=== PATIENT | male | born 1945 | race Caucasian/White ===

== ENCOUNTER 2017-09-28 10:52 | Observation (INO) | payer OTHER ==
[~2017-09-28] VITALS: Ht 167.6 cm; Wt 84.3 kg
[2017-09-28] MEDS ORDERED: RANITIDINE HCL 50 MG/100 ML D5W IV STA (11:23)
[2017-09-28] MEDS ORDERED: DiphenhydrAMINE HCL 50 MG/ML VIAL IV STA (11:23)
[2017-09-28] MEDS ORDERED: METHYLPREDNISOLONE 125 MG VIAL IV STA (11:23)
--- NOTE | 2017-09-28 11:46 | EMERGENCY ROOM VISIT NOTE ---
History Report prepared by Oscar: Joni Emmanuel Under the Supervision of: Dr. Chacho Stanley M.D. First contact with patient: 11:01 Chief Complaint: ALLERGIC REACTION Stated Complaint: ALLERGIC REACTION,HIVES,SWELLING,FATIGUE History of Present Illness The patient is a 72 year old male who presents to the Emergency Room due to complaints of a waxing and waning allergic reaction that began 8 days ago. Patient states that he also has itchiness. He states that the hives are located "all over his body". Patient states that the first episode occurred 8 days ago when he was taking a flight from [place] to [facility]. He states that during the flight he was itching only in his genital region. Patient states that he woke up the next morning with facial swelling and even more itching. He states that he went to a 24 hour clinic down in the [facility] and was discharged on Benadryl and 2 Prednisone tablets. He states that he was fine the next two days but then the hives came back again 4 days ago. He states that he then went back again to the clinic and was prescribed more Prednisone. He states that he cut his trip short from the [facility] and flew back to [place] the next day. He states that the hives were the "worst" they have ever been yesterday. He states that the hives are only itchy "when they are developing" and not when they are established. Patient states that he was seen at [facility] recently for his symptoms. Patient states that he takes a baby aspirin daily. He denies a history of problems with the baby aspirin. Patient states that he has no other medical problems. He denies sore throat, fevers, and abdominal pain. 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 Patient is present with his . Source of History: patient, spouse/significant other () Onset: 8 days ago Position: head, chest, shoulder, arm (bilateral), back, leg (bilateral) Quality: other ("itchy") Timing: waxes/wanes Modifying Factors (Relieving): other (None) Associated Symptoms: No fevers, No abdominal pain Note: Patient denies sore throat. Review of Systems See HPI for pertinent positives & negatives. A total of 10 systems reviewed and were otherwise negative. Past Medical & Surgical Old medical records were reviewed. Nurse's notes were reviewed and I agree with. No pertinent past medical & surgical history. Family History FHx: Alzheimer's disease Polyarthritis Social History Smoking Status: Never Smoker Marital Status: Housing Status: lives with family Occupation Status: retired Current/Historical Medications Scheduled Aspirin (Aspirin Ec), 81 MG PO DAILY Diphenhydramine Hcl (Benadryl), 50 MG PO Q6 Famotidine (Pepcid), 20 MG PO DAILY Prednisone (Prednisone), 0 PO UD Prednisone (Prednisone), 50 MG PO DAILY Scheduled PRN Epinephrine (Epipen), 0.3 MG IM UD PRN for Allergic Reaction Allergies Coded Allergies: Codeine (Unverified Allergy, Unknown, 09/28/17) Physical Exam Vital Signs Date Time Temp Pulse Resp B/P (MAP) Pulse Ox O2 Delivery O2 Flow Rate FiO2 09/28/17 14:30 76 20 109/72 92 Room Air 09/28/17 12:53 94 20 119/80 94 Room Air 09/28/17 11:09 99 Room Air 09/28/17 10:57 36.7 115 16 122/90 99 Room Air Physical Exam General: Non-ill appearing older male with a diffuse red rash consistent with hives in no acute distress and no respiratory symptoms. HEENT: Normal cephalic atraumatic. Right eye sclera is injected from where the patient is rubbing otherwise pupils are equal round and reactive to light. Extraocular movements are intact. Oropharynx is pink with moist mucous membranes. No lesions or posterior swelling. No swelling of the mouth lips or tongue. Neck: Supple with a midline trachea. No meningeal signs or stiffness, no JVD or bruits. No Stridor. Chest: Clear to auscultation bilaterally. No wheezes or rhonchi. No increased work of breathing. Heart: regular rate and rhythm. Abdomen: Soft nontender, nondistended without rebound guarding or rigidity. Extremities: No cyanosis clubbing or edema. No calf tenderness or assymetry Spine/Back. Non tender to palpation. No CVA tenderness Skin: Diffuse red rash consistent with hives. Significant body coverage on legs , arms, and torso. No involvement of the mucous membranes or palms/soles. Good turgor. Neurologic exam: Cranial nerves two through 12 are intact. Motor and sensation are intact and symmetrical throughout. Medical Decision & Procedures ER Provider Diagnostic Interpretation: Radiology results as stated below per my review and radiologist interpretation: CHEST ONE VIEW PORTABLE CLINICAL HISTORY: Atypical chest pain COMPARISON STUDY: No previous studies for comparison. FINDINGS: The cardiac and mediastinal contours are normal. There is no evidence of focal pulmonary consolidation. There is no evidence of failure. No pleural effusions are visualized.[ IMPRESSION: No active disease in the chest. Electronically signed by: Perez Araya M.D. 09/28/2017 2:13 PM Chest x-ray per my interpretation reveals no pneumothorax, failure, or infiltrate. Laboratory Results 09/28/17 11:30 Red Blood Count 6.16, Mean Corpuscular Volume 90.7, Mean Corpuscular Hemoglobin 33.8, Mean Corpuscular Hemoglobin Concent 37.2, Mean Platelet Volume 11.7, Neutrophils (%) (Auto) 86.9, Lymphocytes (%) (Auto) 9.1, Monocytes (%) (Auto) 3.6, Eosinophils (%) (Auto) 0.1, Basophils (%) (Auto) 0.0, Neutrophils # (Auto) 5.98, Lymphocytes # (Auto) 0.63, Monocytes # (Auto) 0.25, Eosinophils # (Auto) 0.01, Basophils # (Auto) 0.00 09/28/17 11:30 Test 09/28/17 11:30 09/28/17 14:30 White Blood Count 6.89 K/uL (4.8-10.8) Red Blood Count 6.16 M/uL (4.7-6.1) Hemoglobin 20.8 g/dL (14.0-18.0) Hematocrit 55.9 % (42-52) Mean Corpuscular Volume 90.7 fL (80-100) Mean Corpuscular Hemoglobin 33.8 pg (25-34) Mean Corpuscular Hemoglobin Concent 37.2 g/dl (32-36) Platelet Count 146 K/uL (130-400) Mean Platelet Volume 11.7 fL (7.4-10.4) Neutrophils (%) (Auto) 86.9 % Lymphocytes (%) (Auto) 9.1 % Monocytes (%) (Auto) 3.6 % Eosinophils (%) (Auto) 0.1 % Basophils (%) (Auto) 0.0 % Neutrophils # (Auto) 5.98 K/uL (1.4-6.5) Lymphocytes # (Auto) 0.63 K/uL (1.2-3.4) Monocytes # (Auto) 0.25 K/uL (0.11-0.59) Eosinophils # (Auto) 0.01 K/uL (0-0.5) Basophils # (Auto) 0.00 K/uL (0-0.2) RDW Standard Deviation 42.1 fL (36.4-46.3) RDW Coefficient of Variation 12.7 % (11.5-14.5) Immature Granulocyte % (Auto) 0.3 % Immature Granulocyte # (Auto) 0.02 K/uL (0.00-0.02) Anion Gap 8.0 mmol/L (3-11) Est Creatinine Clear Calc Drug Dose 60.4 ml/min Estimated GFR () 72.8 Estimated GFR (Non- 62.8 BUN/Creatinine Ratio 16.5 (10-20) Calcium Level 9.3 mg/dl (8.5-10.1) Total Bilirubin 2.8 mg/dl (0.2-1) Direct Bilirubin 0.3 mg/dl (0-0.2) Aspartate Amino Transf (AST/SGOT) 17 U/L (15-37) Alanine Aminotransferase (ALT/SGPT) 18 U/L (12-78) Alkaline Phosphatase 120 U/L (45-117) Total Protein 7.0 gm/dl (6.4-8.2) Albumin 3.8 gm/dl (3.4-5.0) Lipase 216 U/L (73-393) Thyroid Stimulating Hormone (TSH) 1.460 uIu/ml (0.300-4.500) Urine Color YELLOW Urine Appearance CLEAR (CLEAR) Urine pH 5.5 (4.5-7.5) Urine Specific [place] 1.018 (1.000-1.030) Urine Protein NEG (NEG) Urine Glucose (UA) NEG (NEG) Urine Ketones NEG (NEG) Urine Occult Blood NEG (NEG) Urine Nitrite NEG (NEG) Urine Bilirubin NEG (NEG) Urine Urobilinogen NEG (NEG) Urine Leukocyte Esterase NEG (NEG) Laboratory studies as stated above per my review. Medications Administered Medications (Trade) Dose Ordered Sig/Celeste Route Start Time Stop Time Status Last Admin Dose Admin Methylprednisolone Sodium Succinate (Solu-Medrol IV) 125 mg NOW STAT IV 09/28/17 11:23 09/28/17 11:24 DC 09/28/17 11:41 125 MG Diphenhydramine HCl (Benadryl Inj) 25 mg NOW STAT IV 09/28/17 11:23 09/28/17 11:24 DC 09/28/17 11:41 25 MG Ranitidine HCl (zANTac IV) 50 mg NOW STAT IV 09/28/17 11:23 09/28/17 11:24 DC 09/28/17 11:42 50 MG ED Course 1106: Past medical records reviewed. The patient was evaluated in room C12B, and a complete history and physical examination were performed. 1123: Ranitidine HCl 50mg IV, Benadryl Inj 25mg IV, and Solu-Medrol IV 125mg IV. 1343: Patient's hives are starting to fade. Facial swelling has resolved since coming to the ER. 1443: I reassessed the patient. Patient's hives are starting to get better, however they have reappeared on his face and hands. believes that the patient has gotten worse. 1453: Upon reevaluation, the patient will be further evaluated. I discussed the results and treatment plan with the patient. He verbalized agreement of the treatment plan. The patient will be evaluated for further management. Medical Decision Differentials include, but are not limited to; hives, allergic reaction, electrolyte or metabolic abnormality, and Price-Lang syndrome. This patient comes in as described above. He was placed in room C 12. Here for treatment and evaluation of ongoing hives/urticaria rash. This started about 8 days ago. He is on a tapering dose of steroids and this has gotten worse over the last 24 hours. he has had no airway compromise or swelling of the mouth lips or tongue. he does have some mild swelling the face. IV access was established was given Solu-Medrol 125 mg IV, Benadryl 25 mg IV, Zantac 50 mg IV. With these measures he actually looks significantly better he still has a lot of residual rash but is fading the face is no longer swollen. He is no evidence to suggest anaphylaxis. I did blood work on him and looked at his labs from [facility]. He has no white count or fever to suggest infection. His hemoglobin is high at 20 and he may have polycythemia. I am not sure offhanded if this could cause her to cardiac. His bilirubin is also mildly high at 2.6 or the rest of LFTs are unremarkable besides this rest of his labs are unremarkable. I do not find a definite reason for his urticaria at this point, I doubt is allergic because this has been going on for so long. I did discuss case with a customer expert recommends ensuring that he is on higher dose steroids. I was considering sending him home and his feels the rash is getting worse. In light of this, I do think he should be observed and have consulted the [facility] hospitalist. He has no evidence of any airway compromise or infection at this point. He will likely need several specialties involved to rule out other potential underlying etiologies. Patient and his were happy with the plan. Medication Reconcilliation Current Medication List: was personally reviewed by me Blood Pressure Screening Patient's blood pressure: Normal blood pressure Blood pressure disposition: Did not require urgent referral Consults Time Called: 1345 Consulting Physician: Dr. Gregory - Dermatology Returned Call: [phone] Discussed the patient's case. Dr. Gregory recommends giving the patient a chest x-ray and urine test. She recommends the patient follow-up with hematology and dermatology following discharge. She adds that the patient should be on a high dose of steroids and be prescribed an EpiPen. Additional Consults: Time Called: 1447 Consulted Physician: Melissa Lau PA-C - [facility] Returned Call: [phone] Additional Comments: Discussed the patient's case. The patient will be evaluated for further management. Impression Primary Impression: Urticarial rash Scribe Attestation The scribe's documentation has been prepared under my direction and personally reviewed by me in its entirety. I confirm that the note above accurately reflects all work, treatment, procedures, and medical decision making performed by me. Departure Information Dispostion Being Evaluated By Hospitalist Prescriptions Epinephrine (EPIPEN) 0.3 Mg/0.3 Ml Inj 0.3 MG IM UD Y for Allergic Reaction, #1 BOX Prov: Chacho Stanley M.D. 09/28/17 Prednisone (Prednisone) 50 Mg Tab 50 MG PO DAILY, #5 TAB Prov: Chacho Stanley M.D. 09/28/17 Referrals Vivian Gu M.D. (PCP) Forms HOME CARE DOCUMENTATION FORM, IMPORTANT VISIT INFORMATION Patient Instructions [facility]
[2017-09-28 11:55] LABS: EOS % 0.1 %; EOS ABS # 0.01 K/uL (0-0.5); HEMATOCRIT 55.9 % (42-52); HEMOGLOBIN 20.8 g/dL (14.0-18.0); IG# 0.02 K/uL (0.00-0.02); LYMPH % 9.1 %; LYMPH ABS # 0.63 K/uL (1.2-3.4); MEAN CELL VOLUME 90.7 fL (80-100); MEAN CORPUSCULAR HEMOGLOBIN 33.8 pg (25-34); MEAN PLATELET VOLUME 11.7 fL (7.4-10.4); MONO % 3.6 %; MONO ABS # 0.25 K/uL (0.11-0.59); NEUT % 86.9 %; NEUT ABS # 5.98 K/uL (1.4-6.5); PLATELET COUNT 146 K/uL (130-400); RED CELL DISTRIBUTION WIDTH CV 12.7 % (11.5-14.5); RED CELL DISTRIBUTION WIDTH SD 42.1 fL (36.4-46.3); WHITE BLOOD COUNT 6.89 K/uL (4.8-10.8)
[2017-09-28 12:12] LABS: MEAN CORPUSCULAR HGB CONC 37.2 g/dl (32-36)
[2017-09-28] MEDS ORDERED: FAMO20TA11 PO (12:16)
[2017-09-28] MEDS ORDERED: ASPI81TA28 PO (12:16)
[2017-09-28] MEDS ORDERED: PRED10TA PO (12:16)
[2017-09-28] MEDS ORDERED: DIPH25CA5 PO (12:16)
[2017-09-28 12:22] LABS: ALBUMIN 3.8 gm/dl (3.4-5.0); CALCIUM 9.3 mg/dl (8.5-10.1); CREATININE 1.17 mg/dl (0.60-1.40); POTASSIUM 4.1 mmol/L (3.5-5.1)
[2017-09-28] MEDS ORDERED: EPP3/2 IM (14:06)
[2017-09-28] MEDS ORDERED: PRED50TA PO (14:06)
--- NOTE | 2017-09-28 14:14 | DIAGNOSTIC IMAGING REPORT ---
CHEST ONE VIEW PORTABLE CLINICAL HISTORY: Atypical chest pain COMPARISON STUDY: No previous studies for comparison. FINDINGS: The cardiac and mediastinal contours are normal. There is no evidence of focal pulmonary consolidation. There is no evidence of failure. No pleural effusions are visualized.[ IMPRESSION: No active disease in the chest. Electronically signed by: Perez Araya M.D. 09/28/2017 2:13 PM Dictated Date/Time: 09/28/2017 2:13 PM
[2017-09-28] MEDS ORDERED: ACETAMINOPHEN 325 MG TAB PO PRN (15:30)
[2017-09-28] MEDS ORDERED: SODIUM CHLORIDE 0.9% 1000ML 1,000 ML IV SCH (15:45)
[2017-09-28] MEDS ORDERED: CETIRIZINE HCL 10 MG TAB PO ONE (15:45)
[2017-09-28] MEDS ORDERED: EPINEPHRINE ADULT AUTO-INJECT 0.3 MG SYR IM PRN (15:45)
[2017-09-28] MEDS ORDERED: CETIRIZINE HCL 10 MG TAB ONE (15:56)
[2017-09-28] MEDS ORDERED: METHYLPREDNISOLONE IV 60 MG in SYRINGE 0 ML IV ONE (16:00)
[2017-09-28 16:12] VITALS: O2SAT 93
--- NOTE | 2017-09-28 16:15 | History and Physical ---
History & Physical Date & Time of Service: September 28, 2017 at 15:52 Chief Complaint: Allergic Reaction,Hives,Swelling,Fatigue Primary Care Physician: Savage Brown M.D. History of Present Illness Source: patient, clinic records, hospital records Patient is a 72-year-old male who presents to the ED with a worsening rash 8 days. Patient was flying from [place] to the [facility] when he started to experience itching in his groin area that continued overnight. The next morning , patient noted facial swelling as well. Was seen in a clinic and was given IV steroids and Benadryl with resolution of symptoms. The next day, patient's facial swelling recurred and he also noted swelling in hands and arms. Also started to experience hives on his face and arms. Was given oral Benadryl and prednisone, which would help itchiness and swelling for but then would notice red splotches would reappear. Patient and flew home early and were seen in [facility] on Friday when Pepcid was added to regimen and prednisone taper was initiated at 40mg daily. Over the weekend, hives spread all over body and itching intensified. Also notes lip swelling. Was directed to come to ED for further evaluation. Was given 125mg IV solu-medrol, 25mg IV benadryl and 50mg IV Zantac in ED and hives and swelling completed resolved before returning. Denies pain or drainage from rash. No respiratory distress, chest tightness or difficulty swallowing. Denies fever, chills, lightheadedness, visual changes, chest pain, SOB, abd pain , nausea, vomiting or bowel/bladder changes. Home medication consists of a baby aspirin in the morning. Denies any new detergent, lotions, foods or medications. Past Medical/Surgical History Medical Problems: (1) Mitral valve regurgitation Status: Chronic Family History FHx: Alzheimer's disease Polyarthritis Social History Smoking Status: Former Smoker Alcohol Use: socially (3 beers daily ) Marital Status: Occupational Status: retired Allergies Coded Allergies: Codeine (Unverified Allergy, Unknown, 09/28/17) Home Medications Scheduled Aspirin (Aspirin Ec), 81 MG PO DAILY Diphenhydramine Hcl (Benadryl), 50 MG PO Q6 Famotidine (Pepcid), 20 MG PO DAILY Prednisone (Prednisone), 0 PO UD Prednisone (Prednisone), 50 MG PO DAILY Scheduled PRN Epinephrine (Epipen), 0.3 MG IM UD PRN for Allergic Reaction Review of Systems Ten systems reviewed and negative except as noted in the HPI. Physical Exam Vital Signs Date Time Temp Pulse Resp B/P (MAP) Pulse Ox O2 Delivery O2 Flow Rate FiO2 09/28/17 14:30 76 20 109/72 92 Room Air 09/28/17 12:53 94 20 119/80 94 Room Air 09/28/17 11:09 99 Room Air 09/28/17 10:57 36.7 115 16 122/90 99 Room Air General Appearance: WD/WN, no apparent distress Head: normocephalic, atraumatic Eyes: normal inspection, PERRL, sclerae normal ENT: normal ENT inspection, hearing grossly normal, pharynx normal, + pertinent finding (mild lip swelling) Neck: supple, thyroid normal, trachea midline Respiratory/Chest: chest non-tender, lungs clear, normal breath sounds, no respiratory distress, no accessory muscle use Cardiovascular: regular rate, rhythm, no murmur, normal peripheral pulses Abdomen/GI: non tender, soft, no organomegaly Back: normal inspection Extremities/Musculoskelatal: normal inspection, no calf tenderness, no pedal edema Neurologic/Psych: no motor/sensory deficits, alert, normal mood/affect, oriented x 3 Skin: + pertinent finding (Diffuse pruritic red macules and pink patches throughout face, torso and extremities. ) Diagnostics Laboratory Results Results Past 24 Hours Test 09/28/17 11:30 09/28/17 14:30 09/28/17 15:50 Range/Units White Blood Count 6.89 4.8-10.8 K/uL Red Blood Count 6.16 4.7-6.1 M/uL Hemoglobin 20.8 14.0-18.0 g/dL Hematocrit 55.9 42-52 % Mean Corpuscular Volume 90.7 80-100 fL Mean Corpuscular Hemoglobin 33.8 25-34 pg Mean Corpuscular Hemoglobin Concent 37.2 32-36 g/dl Platelet Count 146 130-400 K/uL Mean Platelet Volume 11.7 7.4-10.4 fL Neutrophils (%) (Auto) 86.9 % Lymphocytes (%) (Auto) 9.1 % Monocytes (%) (Auto) 3.6 % Eosinophils (%) (Auto) 0.1 % Basophils (%) (Auto) 0.0 % Neutrophils # (Auto) 5.98 1.4-6.5 K/uL Lymphocytes # (Auto) 0.63 1.2-3.4 K/uL Monocytes # (Auto) 0.25 0.11-0.59 K/uL Eosinophils # (Auto) 0.01 0-0.5 K/uL Basophils # (Auto) 0.00 0-0.2 K/uL RDW Standard Deviation 42.1 36.4-46.3 fL RDW Coefficient of Variation 12.7 11.5-14.5 % Immature Granulocyte % (Auto) 0.3 % Immature Granulocyte # (Auto) 0.02 0.00-0.02 K/uL Sodium Level 136 136-145 mmol/L Potassium Level 4.1 3.5-5.1 mmol/L Chloride Level 102 98-107 mmol/L Carbon Dioxide Level 27 21-32 mmol/L Anion Gap 8.0 3-11 mmol/L Blood Urea Nitrogen 19 7-18 mg/dl Creatinine 1.17 0.60-1.40 mg/dl Est Creatinine Clear Calc Drug Dose 60.4 ml/min Estimated GFR () 72.8 Estimated GFR (Non- 62.8 BUN/Creatinine Ratio 16.5 10-20 Random Glucose 124 70-99 mg/dl Calcium Level 9.3 8.5-10.1 mg/dl Total Bilirubin 2.8 0.2-1 mg/dl Direct Bilirubin 0.3 0-0.2 mg/dl Aspartate Amino Transf (AST/SGOT) 17 15-37 U/L Alanine Aminotransferase (ALT/SGPT) 18 12-78 U/L Alkaline Phosphatase 120 45-117 U/L Total Protein 7.0 6.4-8.2 gm/dl Albumin 3.8 3.4-5.0 gm/dl Lipase 216 73-393 U/L Thyroid Stimulating Hormone (TSH) 1.460 0.300-4.500 uIu/ml Urine Color YELLOW Urine Appearance CLEAR CLEAR Urine pH 5.5 4.5-7.5 Urine Specific [place] 1.018 1.000-1.030 Urine Protein NEG NEG Urine Glucose (UA) NEG NEG Urine Ketones NEG NEG Urine Occult Blood NEG NEG Urine Nitrite NEG NEG Urine Bilirubin NEG NEG Urine Urobilinogen NEG NEG Urine Leukocyte Esterase NEG NEG Microbiology Results 09/28/17 Urine Culture, Received Pending Diagnostic Radiology CXR: IMPRESSION: No active disease in the chest. Impression Assessment and Plan Patient is a 72-year-old male who presents to the ED with a worsening rash 8 days. Diffuse urticaria: -Unknown etiology -Possible aspirin allergy -Given IV solumedrol, benadryl and zantac in ED with recurrence -Hold aspirin -Cont IV solumedrol, benadryl, zantac -Chief Of Surgery consulted Elevated hemoglobin: -RBC: 6.16,Hgb of 20.8, Hct of 55.9 -Baseline RBC: 5, Hgb: 17, Hct: 47 -Euvolemic on exam -Peripheral smear pending -Considering polycythemia vera with itching, abnormal CBC DVT Ppx: SQ heparin Code status: FULL PCP: Stephanie Dispo: Observation med/surg. Plan to return home once medically stable. Patient seen in collaboration with Dr. Preston. Please see addendum. ATTENDING ADDENDUM care coordinated with AIDEN Lau please refer to her notes for full details, I agree with her notes patient seen and examined, records reviewed by myself as well on exam, patient seen resting in bed, comfortable, pleasant States he feels improved compared to earlier in the ER Pruritus markedly improved., Hives also improved Denies shortness of breath, throat tongue or lip swelling no other symptoms VS noted and reviewed oriented 3, not in distress, speaks in sentences with no effort nor accessory muscle use normal rate, regular rhythm, no murmurs clear breath sounds bilaterally non distended, soft, nontender no bipedal edema, erythema, warmth no neuro deficits Skin: Diffuse erythematous, morbilliform rash on chest and torso back extremities Hemoglobin 20 Positive indirect bilirubin anemia ASSESSMENT/PLAN> Persistent, recurrent urticarial rash Unclear etiology ; possible aspirin allergy Rule out underlying malignancy --We will continue Solu-Medrol 60 mg daily Zyrtec 10 mg twice daily Ranitidine 150 mg twice daily Benadryl every 6 hours as needed --Discussed with [facility] mapping specialist recreational therapy technician Dr. Conteh Possible rule out polycythemia vera --Check peripheral smear --CBC daily --We will consult hematology Elevated indirect bilirubin --Likely from #2 --Check liver ultrasound --Monitor LFTs other diagnoses and plan of care as per AIDEN Preston MD Resuscitation Status VTE Prophylaxis Will order VTE Prophylaxis: Yes
[2017-09-28 16:33] VITALS: BP 149/78; PULSE 102; TEMP 36.8; O2SAT 93
[2017-09-28] MEDS ORDERED: DiphenhydrAMINE INJ 25 MG in SYRINGE 0 ML IV PRN (17:15)
[2017-09-28] MEDS ORDERED: DiphenhydrAMINE HCL 50 MG/ML VIAL IV PRN (17:30)
[2017-09-28 17:43] VITALS: Ht 167.6 cm; Wt 84.3 kg
[2017-09-28] MEDS: RANITIDINE HCL 150 MG TAB PO SCH (18:55)
[2017-09-28] MEDS ORDERED: IV FLUIDS COMPLETED PRN (19:30)
[2017-09-28] MEDS: HEPARIN SOD 5000 UNIT/0.5 ML CARP SQ SCH ×2 (20:44→21:31)
[2017-09-28] MEDS: METHYLPREDNISOLONE IV 60 MG in SYRINGE 0 ML IV SCH (21:31)
[2017-09-29 00:08] VITALS: BP 107/67; PULSE 51; TEMP 36.5; O2SAT 93
[2017-09-29] MEDS: METHYLPREDNISOLONE IV 60 MG in SYRINGE 0 ML IV SCH ×3 (03:57→16:24)
[2017-09-29 06:04] LABS: HEMATOCRIT 44.5 % (42-52); HEMOGLOBIN 16.1 g/dL (14.0-18.0); MEAN CELL VOLUME 91.8 fL (80-100); MEAN CORPUSCULAR HEMOGLOBIN 33.2 pg (25-34); MEAN CORPUSCULAR HGB CONC 36.2 g/dl (32-36); MEAN PLATELET VOLUME 11.6 fL (7.4-10.4); PLATELET COUNT 155 K/uL (130-400); RED CELL DISTRIBUTION WIDTH CV 12.7 % (11.5-14.5); RED CELL DISTRIBUTION WIDTH SD 42.7 fL (36.4-46.3); WHITE BLOOD COUNT 6.72 K/uL (4.8-10.8)
[2017-09-29 06:28] LABS: ALBUMIN 3.1 gm/dl (3.4-5.0); CALCIUM 8.4 mg/dl (8.5-10.1); CREATININE 0.88 mg/dl (0.60-1.40); POTASSIUM 4.8 mmol/L (3.5-5.1); TOTAL PROTEIN 6.2 gm/dl (6.4-8.2)
[2017-09-29 07:46] VITALS: BP 137/80; PULSE 58; TEMP 36.6; O2SAT 97
[2017-09-29] MEDS: RANITIDINE HCL 150 MG TAB PO SCH ×2 (08:45→21:30)
[2017-09-29] MEDS ORDERED: CETIRIZINE HCL 10 MG TAB PO SCH (09:00)
--- NOTE | 2017-09-29 09:36 | DIAGNOSTIC IMAGING REPORT ---
(LIVER) ABDOMEN LIMITED CLINICAL HISTORY: 72 years-old Male presenting with indirect bilirubinemia. TECHNIQUE: Real-time grayscale and limited color Doppler ultrasound imaging of the abdomen limited to the right upper quadrant was performed. COMPARISON: None. FINDINGS: Pancreas: Visualized portions of the pancreatic head and body normal. Liver: Hyperechogenic parenchyma with heterogeneous echotexture, likely indicating fibrosis or steatosis. The liver measures 13.0 cm in maximal sagittal dimension. No sonographic evidence of hepatic mass. Main portal vein patent with normal directional flow. Biliary: No intrahepatic biliary ductal dilatation. Common bile duct measures up to 4 mm in diameter. Gallbladder: The gallbladder is slightly contracted with borderline wall thickening likely secondary to contraction. A 2 mm focus along the gallbladder wall, which is nonmobile and hyperechoic likely represents a small cholesterol polyp. No evidence of gallstones, gallbladder distention, or pericholecystic fluid or inflammatory change. Sonographic Talbot's sign negative. Right kidney: Normal in appearance without evidence of hydronephrosis. Ascites: None. Other: None. IMPRESSION: 1. Heterogeneity of liver parenchyma likely indicates fibrosis or steatosis. 2. No cholelithiasis or biliary ductal dilatation. Electronically signed by: Savage Leach M.D. 09/29/2017 9:35 AM Dictated Date/Time: 09/29/2017 7:45 AM
--- NOTE | 2017-09-29 09:57 | Medical Consult ---
Consultation Date of Consultation: September 29, 2017. Attending Physician: Shaun Preston MD Reason for Consultation: Concern for polycythemia vera History of Present Illness Mr. Arreola is a 72 yo M new to the consulting Hematology service. He states he has no other significant PMH. He only took ASA 81 mg daily as outpatient. He is admitted currently for urticarial rash and angioedema. This started in past 7 -10 days, exacerbated while he was on vacation abroad, returned home early. His symptoms have responded to steroid pulse and histamines but the hives are recurring with withdrawal of steroids. He reported to [facility] on 09/28/17. He was given methylprednisolone 125 mg and Benadryl 25 mg and Zantac in ER. He is now on methylprednisolone 60 mg q6h and cetirizine 10 mg daily. He has Benadryl and epinephrine PRN. Consult has been placed for dermatology and area secretary. Patient's aspirin is on hold currently. On admission his H+H was noted to be 20/55.9, now on recheck this AM Hgb in 16 g /dL and Hct in 44 range. However, review of CBCs in [facility] reveals elevated H+H since 2007. Hematology consult was then placed. Additional history obtained from the patient at bedside. Patient reports feeling overall fair. He states his hives and angioedema started about 8 days ago after he left for the [facility]. He woke up the 1st day of vacation with entire face swollen, hands swollen and hives. He received treatment with steroids and Benadryl on 2 separate days in [facility] and then decided to fly home this past . He was seen on at on Friday for his angioedema and hives, he remained on steroid and Benadryl, Pepcid was added. However, his symptoms worsened over the weekend. He states now he has no angioedema like symptoms. His hives are resolving on lower extremities, chest is every blotchy. He denies issues with headache, vision changes, dyspnea, cough, chest pain. He states his energy and appetite have been affected in past few days bu he thinks it is all the meds he is taking anxiety surrounding his condition. He denies abdominal pain, bowel bleeding. He denies erythromelalgia and aquagenic pruritus. Past Medical/Surgical History Medical Problems: (1) Urticarial rash Status: Acute Family History FHx: Alzheimer's disease Polyarthritis Social History Smoking Status: Never Smoker Alcohol Use: socially (3 beers daily ) Marital Status: Housing Status: lives with family Occupation Status: retired Allergies Coded Allergies: Codeine (Unverified Allergy, Unknown, 09/28/17) Current Inpatient Medications Current Inpatient Medications Medications (Trade) Dose Ordered Sig/Celeste Route Start Time Stop Time Status Last Admin Dose Admin Acetaminophen (Tylenol Tab) 650 mg Q4H PRN PO 09/28/17 15:30 10/28/17 15:29 Heparin Sodium (Porcine) (Heparin Sq 5000 Unit/0.5ml) 5,000 unit Q8 SQ 09/28/17 22:00 10/28/17 21:59 Methylprednisolone Sodium Succinate 60 mg/Syringe 0.96 ml @ 1.5 mls/min Q6H IV 09/28/17 22:00 10/28/17 21:59 09/29/17 08:45 1.5 MLS/MIN Cetirizine HCl (zyrTEC TAB) 10 mg QAM PO 09/29/17 09:00 10/29/17 08:59 09/29/17 08:45 10 MG Ranitidine HCl (zANTac TAB) 150 mg BID PO 09/28/17 21:00 10/28/17 20:59 09/29/17 08:45 150 MG Epinephrine (Epipen) 0.3 mg UD PRN IM 09/28/17 15:45 10/28/17 15:44 Diphenhydramine HCl (Benadryl Inj) 25 mg Q6H PRN IV 09/28/17 17:30 10/28/17 17:29 09/29/17 04:00 25 MG Miscellaneous (Iv Fluids Completed) 1 ea PRN PRN N/A 09/28/17 19:30 09/28/18 19:29 Review of Systems Constitutional: + fatigue, No fever Eyes: No worsening of vision Respiratory: No cough, No shortness of breath Cardiovascular: + edema (LEs), No chest pain Abdomen: No pain, No nausea, No vomiting, No diarrhea, No GI bleeding Integumentary: + rash, + itch Physical Exam Date Time Temp Pulse Resp B/P (MAP) Pulse Ox O2 Delivery O2 Flow Rate FiO2 09/29/17 08:00 Room Air 09/29/17 07:46 36.6 58 18 137/80 (99) 97 Room Air 09/29/17 00:08 36.5 51 18 107/67 (80) 93 Room Air 09/29/17 00:00 Room Air 09/28/17 17:43 Room Air 09/28/17 16:33 36.8 102 18 149/78 (101) 93 09/28/17 16:12 80 16 129/92 93 09/28/17 16:00 80 16 129/92 93 Room Air 09/28/17 14:30 76 20 109/72 92 Room Air 09/28/17 12:53 94 20 119/80 94 Room Air 09/28/17 11:09 99 Room Air 09/28/17 10:57 36.7 115 16 122/90 99 Room Air General Appearance: WD/WN, no apparent distress ENT: hearing grossly normal Neck: no adenopathy Respiratory/Chest: lungs clear, no respiratory distress Cardiovascular: regular rate, rhythm Abdomen/GI: non tender, no organomegaly Extremities/Musculoskelatal: no calf tenderness Neurologic/Psych: alert, oriented x 3 Skin: + pertinent finding (fading urticaria of LEs, blotchy anterior chest) Laboratory Results Last 24 Hours Test 09/28/17 11:30 09/28/17 14:30 09/28/17 15:58 09/29/17 05:31 White Blood Count 6.89 K/uL 6.72 K/uL Red Blood Count 6.16 M/uL 4.85 M/uL Hemoglobin 20.8 g/dL 16.1 g/dL Hematocrit 55.9 % 44.5 % Mean Corpuscular Volume 90.7 fL 91.8 fL Mean Corpuscular Hemoglobin 33.8 pg 33.2 pg Mean Corpuscular Hemoglobin Concent 37.2 g/dl 36.2 g/dl Platelet Count 146 K/uL 155 K/uL Mean Platelet Volume 11.7 fL 11.6 fL Neutrophils (%) (Auto) 86.9 % Lymphocytes (%) (Auto) 9.1 % Monocytes (%) (Auto) 3.6 % Eosinophils (%) (Auto) 0.1 % Basophils (%) (Auto) 0.0 % Neutrophils # (Auto) 5.98 K/uL Lymphocytes # (Auto) 0.63 K/uL Monocytes # (Auto) 0.25 K/uL Eosinophils # (Auto) 0.01 K/uL Basophils # (Auto) 0.00 K/uL RDW Standard Deviation 42.1 fL 42.7 fL RDW Coefficient of Variation 12.7 % 12.7 % Immature Granulocyte % (Auto) 0.3 % Immature Granulocyte # (Auto) 0.02 K/uL Nucleated RBC Absolute Count (auto) 0.00 K/uL Nucleated Red Blood Cells % 0.0 % Peripheral Blood Smear Path Consult Sodium Level 136 mmol/L 139 mmol/L Potassium Level 4.1 mmol/L 4.8 mmol/L Chloride Level 102 mmol/L 106 mmol/L Carbon Dioxide Level 27 mmol/L 30 mmol/L Anion Gap 8.0 mmol/L 3.0 mmol/L Blood Urea Nitrogen 19 mg/dl 17 mg/dl Creatinine 1.17 mg/dl 0.88 mg/dl Est Creatinine Clear Calc Drug Dose 60.4 ml/min 79.5 ml/min Estimated GFR () 72.8 100.9 Estimated GFR (Non- 62.8 87.0 BUN/Creatinine Ratio 16.5 19.4 Random Glucose 124 mg/dl 143 mg/dl Calcium Level 9.3 mg/dl 8.4 mg/dl Total Bilirubin 2.8 mg/dl 1.7 mg/dl Direct Bilirubin 0.3 mg/dl 0.3 mg/dl Aspartate Amino Transf (AST/SGOT) 17 U/L 11 U/L Alanine Aminotransferase (ALT/SGPT) 18 U/L 16 U/L Alkaline Phosphatase 120 U/L 97 U/L Total Protein 7.0 gm/dl 6.2 gm/dl Albumin 3.8 gm/dl 3.1 gm/dl Lipase 216 U/L Thyroid Stimulating Hormone (TSH) 1.460 uIu/ml Hepatitis C Antibody Screen NEG Urine Color YELLOW Urine Appearance CLEAR Urine pH 5.5 Urine Specific [place] 1.018 Urine Protein NEG Urine Glucose (UA) NEG Urine Ketones NEG Urine Occult Blood NEG Urine Nitrite NEG Urine Bilirubin NEG Urine Urobilinogen NEG Urine Leukocyte Esterase NEG Prothrombin Time 10.6 SECONDS Prothromb Time International Ratio 1.0 Test 09/29/17 08:44 Assessment & Plan 1. Elevated Hgb/Hct 2. Generalized urticaria associated with angioedema * Discussed with patient about elevated H+H since 2007 * Recommended Geo 2 testing, ordered * Discussed if Geo 2 came back normal, would consider secondary causes of erythrocytosis such as sleep apnea (reported h/o snoring) * Did not discuss much about treatment for PCV, would occur as outpatient with phlebotomy * Discussed with patient that PCV can cause aquagenic pruritus but would not be associated with hives or angioedema * Hives/angioedema work up and treatment per primary team/dermatology/allergy * Patient will require outpatient follow up Thanks for the consult. Dr. Maguire is the attending supervisor delivery department- please see his addendum.
--- NOTE | 2017-09-29 10:26 | Progress Note ---
Medicine Progress Note Date & Time of Visit: September 29, 2017 at 10:15. Subjective seen resting in bed, comfortable states he had a good night this morning, he states he noticed new rash on his hand and on his upper chest / neck area with mild pruritus denies shortness of breath, tongue/lip/throat swelling no fever/chills, changes with urination no headache, dizziness, chest pain no other symptoms Objective Last 8 Hrs Date Time Temp Pulse Resp B/P (MAP) Pulse Ox O2 Delivery O2 Flow Rate FiO2 09/29/17 08:00 Room Air 09/29/17 07:46 36.6 58 18 137/80 (99) 97 Room Air Physical Exam: General- oriented x 3, not in distress, speaks in sentences with no effort Head- atraumatic Eyes- anicteric ENT- oropharynx clear Neck- supple, no JVD, no adenopathy Lungs- clear breath sounds bilaterally Heart- regular rhythm; no murmur, normal rate Abdomen- normal bowel sounds, soft, nontender Extremities- no pretibial edema, no calf tenderness; peripheral pulses intact Neuro- alert, oriented x 3; no gross focal deficits Skin- warm & dry Laboratory Results: Last 24 Hours Test 09/28/17 11:30 09/28/17 14:30 09/28/17 15:58 09/29/17 05:31 White Blood Count 6.89 K/uL 6.72 K/uL Red Blood Count 6.16 M/uL 4.85 M/uL Hemoglobin 20.8 g/dL 16.1 g/dL Hematocrit 55.9 % 44.5 % Mean Corpuscular Volume 90.7 fL 91.8 fL Mean Corpuscular Hemoglobin 33.8 pg 33.2 pg Mean Corpuscular Hemoglobin Concent 37.2 g/dl 36.2 g/dl Platelet Count 146 K/uL 155 K/uL Mean Platelet Volume 11.7 fL 11.6 fL Neutrophils (%) (Auto) 86.9 % Lymphocytes (%) (Auto) 9.1 % Monocytes (%) (Auto) 3.6 % Eosinophils (%) (Auto) 0.1 % Basophils (%) (Auto) 0.0 % Neutrophils # (Auto) 5.98 K/uL Lymphocytes # (Auto) 0.63 K/uL Monocytes # (Auto) 0.25 K/uL Eosinophils # (Auto) 0.01 K/uL Basophils # (Auto) 0.00 K/uL RDW Standard Deviation 42.1 fL 42.7 fL RDW Coefficient of Variation 12.7 % 12.7 % Immature Granulocyte % (Auto) 0.3 % Immature Granulocyte # (Auto) 0.02 K/uL Nucleated RBC Absolute Count (auto) 0.00 K/uL Nucleated Red Blood Cells % 0.0 % Peripheral Blood Smear Path Consult Sodium Level 136 mmol/L 139 mmol/L Potassium Level 4.1 mmol/L 4.8 mmol/L Chloride Level 102 mmol/L 106 mmol/L Carbon Dioxide Level 27 mmol/L 30 mmol/L Anion Gap 8.0 mmol/L 3.0 mmol/L Blood Urea Nitrogen 19 mg/dl 17 mg/dl Creatinine 1.17 mg/dl 0.88 mg/dl Est Creatinine Clear Calc Drug Dose 60.4 ml/min 79.5 ml/min Estimated GFR () 72.8 100.9 Estimated GFR (Non- 62.8 87.0 BUN/Creatinine Ratio 16.5 19.4 Random Glucose 124 mg/dl 143 mg/dl Calcium Level 9.3 mg/dl 8.4 mg/dl Total Bilirubin 2.8 mg/dl 1.7 mg/dl Direct Bilirubin 0.3 mg/dl 0.3 mg/dl Aspartate Amino Transf (AST/SGOT) 17 U/L 11 U/L Alanine Aminotransferase (ALT/SGPT) 18 U/L 16 U/L Alkaline Phosphatase 120 U/L 97 U/L Total Protein 7.0 gm/dl 6.2 gm/dl Albumin 3.8 gm/dl 3.1 gm/dl Lipase 216 U/L Thyroid Stimulating Hormone (TSH) 1.460 uIu/ml Hepatitis C Antibody Screen NEG Urine Color YELLOW Urine Appearance CLEAR Urine pH 5.5 Urine Specific [place] 1.018 Urine Protein NEG Urine Glucose (UA) NEG Urine Ketones NEG Urine Occult Blood NEG Urine Nitrite NEG Urine Bilirubin NEG Urine Urobilinogen NEG Urine Leukocyte Esterase NEG Prothrombin Time 10.6 SECONDS Prothromb Time International Ratio 1.0 Test 09/29/17 08:44 Date/Time Source Procedure Growth Status 09/28/17 14:30 Urine , Clean Catch Urine Culture Pending Received Assessment & Plan Patient is a 72-year-old male who presents to the ED with a worsening rash 8 days. Persistent, recurrent urticarial rash Unclear etiology ; possible Aspirin, Ibuprofen allergy Rule out underlying malignancy? -- patient now remembers that 1 week before rash developed, he was also taking Ibuprofen 250mg daily x 2 weeks -- rash improving -- continue Solu-Medrol 60 mg daily Zyrtec 10 mg daily Ranitidine 150 mg twice daily Benadryl every 6 hours as needed --Discussed with [facility] micro computer specialist telephonic nurse case manager Dr. oCnteh, c1 esterase level ordered will discuss with [facility] habilitation training specialist Dr. Hobbs Rule out polycythemia vera -- Hg improved from 20 to 16 (baseline) peripheral smear: no morphologic abnormalities noted --CBC daily Jak2 ordered -- Hematology consulted Elevated indirect bilirubin --Likely from #2 -- Bili improving -- Check liver ultrasound: steatosis or fibrosis -- Monitor LFTs consult GI DVT prophylaxis Heparin Dispo pending lives at home ff up with Dr. Brown needs to establish with Allergy Clinic Current Inpatient Medications: Current Inpatient Medications Medications (Trade) Dose Ordered Sig/Celeste Route Start Time Stop Time Status Last Admin Dose Admin Acetaminophen (Tylenol Tab) 650 mg Q4H PRN PO 09/28/17 15:30 10/28/17 15:29 Heparin Sodium (Porcine) (Heparin Sq 5000 Unit/0.5ml) 5,000 unit Q8 SQ 09/28/17 22:00 10/28/17 21:59 Methylprednisolone Sodium Succinate 60 mg/Syringe 0.96 ml @ 1.5 mls/min Q6H IV 09/28/17 22:00 10/28/17 21:59 09/29/17 08:45 1.5 MLS/MIN Cetirizine HCl (zyrTEC TAB) 10 mg QAM PO 09/29/17 09:00 10/29/17 08:59 09/29/17 08:45 10 MG Ranitidine HCl (zANTac TAB) 150 mg BID PO 09/28/17 21:00 10/28/17 20:59 09/29/17 08:45 150 MG Epinephrine (Epipen) 0.3 mg UD PRN IM 09/28/17 15:45 10/28/17 15:44 Diphenhydramine HCl (Benadryl Inj) 25 mg Q6H PRN IV 09/28/17 17:30 10/28/17 17:29 09/29/17 04:00 25 MG Miscellaneous (Iv Fluids Completed) 1 ea PRN PRN N/A 09/28/17 19:30 09/28/18 19:29
[2017-09-29] MEDS ORDERED: hydrOXYzine HCL 25 MG TAB PO STA (13:03)
[2017-09-29] MEDS: HEPARIN SOD 5000 UNIT/0.5 ML CARP SQ SCH ×2 (14:41→21:31)
[2017-09-29 16:27] VITALS: BP 114/74; PULSE 57; TEMP 36.6; O2SAT 94
--- NOTE | 2017-09-29 20:13 | Hematology/Oncology Prog Note ---
Hematology/Onc Progress Note Date of Service September 29, 2017. Subjective I performed history and physical examination of the patient. ~I have discussed the patient's case, impression and plan with Sandra Muller PA-C. Her note reflects my findings and plan. In summary, he presented with generalized urticaria, angioedema type of symptoms , responded well with the steroid therapy, found to have elevated hemoglobin and hematocrit, normal white blood cell count and platelet count, no thrombotic complications, review of the chart shows that he had elevated hemoglobin/ hematocrit since 2007 which is raised the posterity of primary bone marrow disorder in the form of polycythemia vera. Will get JAK2 mutation for further evaluation. Discussed with him regarding the role of bone marrow that can be considered, will consider for that as an outpatient if indicated. He is on aspirin therapy for the last 25 years, I'm not sure he had allergic reaction to the aspirin at this time. Presently he is off the aspirin therapy. Jose Antonio Maguire MD Hem/Onc Vital Signs Vital Signs Past 12 Hours Date Time Temp Pulse Resp B/P (MAP) Pulse Ox O2 Delivery O2 Flow Rate FiO2 09/29/17 16:27 36.6 57 16 114/74 (87) 94 Room Air 09/29/17 16:00 Room Air
--- NOTE | 2017-09-29 20:31 | DERMATOLOGY CONSULTATION ---
DATE OF CONSULTATION: 09/29/2017 Inpatient consultation note. CHIEF COMPLAINT: Urticaria. HISTORY OF PRESENT ILLNESS: The patient is a pleasant 72-year-old male with a 9-day history of rash. This started on a flight from [place] to the [employer] he noticed itching in his groin. It started to create hives. On Friday, he woke up with his face, lips and hands swollen and he was sent to a clinic in [place] who gave him IV steroids and Benadryl one time. He did good Friday and Friday and by Friday night the hives were back. He was taken to the clinic where they gave him 40 of oral prednisone a day. He took 40 on Friday, 40 , and 40 Friday. [place] did come [place] the [place] at that time. On Friday, he did see his doctor in [facility] who gave him Pepcid. However, by Friday morning, he had lip swelling, hand swelling and eyelid swelling again. Of note, the patient has not noticed any shortness of breath, throat swelling or tongue swelling throughout any of these episodes. He was seen in the Emergency Room and given 125 mg of IV Solu-Medrol, 25 mg of IV Benadryl, 50 mg of IV Zantac. He was doing well and was due to be discharged to follow up with allergy and dermatology; however, developed increasing urticaria during that time and they decided to admit him. The patient other than feeling itchy and feeling hives and some swelling at times has a completely negative review of systems throughout all this. No headache, fever, sweats, chest pain, coughing, shortness of breath, abdominal pain, nausea, vomiting, diarrhea, unintentional weight loss, known bug or tick bites or any new medications other than Advil daily for 2 weeks prior to the onset of this eruption. He does take aspirin, but has been doing so for 26 years. This is not new. He has never had rash like this before. PAST MEDICAL HISTORY: Mitral valve regurgitation. SOCIAL HISTORY: Former smoker. Social alcohol. . ALLERGIES: CODEINE. HOME MEDICATIONS: Aspirin 81 mg daily, prednisone 40 mg daily, at admission as well as Pepcid 20 mg daily. PHYSICAL EXAMINATION GENERAL: Well appearing male, alert and oriented x3, good mood. SKIN: Complete skin exam template done. I see remnants of a red confluent rash on his bilateral abdomen as well as a little bit on his forearms. This encompasses about 50% of the abdominal and flank areas. Otherwise, he has about 50% of his thigh areas again with faint macular remnants of erythema that are somewhat polycyclic. There is no acute raised lesion whatsoever. There are no targets. There is no Nikolsky sign. There is no involvement of any mucous membranes. Palms and soles are clear. IMPRESSION AND PLAN: Urticaria. There is a large differential diagnosis for urticaria including drug allergy, infection and autoimmune and idiopathic. At this point to be safe, I would have him stay off of the Advil and listed as an allergy for the moment. I asked about tick bites, but he does not remember and he also has no arthritis or no fever to go along with any kind of a positive Lyme history. There are no other foods or drugs that I can elicit or infectious symptoms. I do note in the chart that there was a chest x-ray that shows no active disease. There was also urine culture done which shows only pinpoint growth that they are re-incubating that is therefore not a good infectious cause for his urticaria. He was noted to have an elevated hemoglobin at admission of 20. He has seen hematology here and tells me that they did not feel the urticaria was related but this is a possibility. As for treating this patient, I would recommend that you slowly decrease the IV steroids such as 40 IV q. 6 for a dose or two and then 40 IV q. 8 before sending him home on an oral prednisone taper. You may wish to start with something like 40 p.o. b.i.d. for 3 days, 30 p.o. b.i.d. for 3 days, then 40 a day for 5 days, 30 a day for 5 days, 20 a day for 5 days, 10 a day for 5 days. I would continue the Zyrtec 10 mg b.i.d. I would continue the ranitidine 150 mg p.o. b.i.d. You can add in montelukast 10 mg daily if you feel the need. Benadryl can also be used p.r.n. I would keep him off of all other medications and send him home with an EpiPen. Please note that while I attempted to give you a possible steroid taper the steroid taper will depend on the patient's response and is best managed by the primary care team, who is on site 24 x 7 with the patient. Also, I feel the patient should follow up with allergy and dermatology within a week of discharge. He has a home accounts receivable associate already, Dr. Vila. You should be able to facilitate followup with her, if this is not possible, please call my office at [phone] and speak to Diane and we will facilitate dermatologic follow up for the patient. I will follow along peripherally. Please do not hesitate to contact me at any time day or night with acute worsening in this very pleasant patient. You can get me at work or through our call service at [phone]. Thank you for the consultation. LEXUS
[2017-09-29] MEDS: CETIRIZINE HCL 10 MG TAB PO SCH (21:30)
[2017-09-29] MEDS: METHYLPREDNISOLONE IV 40 MG in SYRINGE 0 ML IV SCH (21:31)
[2017-09-29 23:40] VITALS: BP 119/69; PULSE 56; TEMP 36.6; O2SAT 92
[2017-09-30] MEDS: METHYLPREDNISOLONE IV 40 MG in SYRINGE 0 ML IV SCH ×3 (04:13→14:49)
[2017-09-30] MEDS: HEPARIN SOD 5000 UNIT/0.5 ML CARP SQ SCH ×2 (06:00→13:35)
[2017-09-30 06:55] LABS: ALBUMIN 3.1 gm/dl (3.4-5.0); TOTAL PROTEIN 5.8 gm/dl (6.4-8.2)
[2017-09-30 07:20] VITALS: BP 136/75; PULSE 58; TEMP 36.5; O2SAT 95
[2017-09-30] MEDS: RANITIDINE HCL 150 MG TAB PO SCH (08:56)
[2017-09-30] MEDS: CETIRIZINE HCL 10 MG TAB PO SCH (08:56)
--- NOTE | 2017-09-30 14:06 | Progress Note ---
Medicine Progress Note Date & Time of Visit: September 30, 2017 at 13:51. Subjective Seen resting in bed, comfortable States he feels much better today Urticaria/rash much improved No pruritus Denies throat, lip or tongue swelling, denies shortness of breath No chest pain No fevers chills, problems urinating Denies other symptoms Objective Last 8 Hrs Date Time Temp Pulse Resp B/P (MAP) Pulse Ox O2 Delivery O2 Flow Rate FiO2 09/30/17 08:00 Room Air 09/30/17 07:20 36.5 58 18 136/75 (95) 95 Room Air Physical Exam: General- oriented x 3, not in distress, speaks in sentences with no effort Eyes- anicteric Neck-no JVD Lungs- clear breath sounds bilaterally, no rales or wheezes Heart- regular rhythm; no murmur, normal rate Abdomen- normal bowel sounds, soft, nontender Extremities- no pretibial edema, no calf tenderness Neuro- alert, oriented x 3; no gross focal deficits Skin-no visible signs of urticaria or any rash except for the bilateral thighs as confluent morbilliform erythema which is also improving Laboratory Results: Last 24 Hours Test 09/30/17 05:52 Total Bilirubin 0.7 mg/dl Direct Bilirubin 0.2 mg/dl Aspartate Amino Transf (AST/SGOT) 11 U/L Alanine Aminotransferase (ALT/SGPT) 15 U/L Alkaline Phosphatase 104 U/L Total Protein 5.8 gm/dl Albumin 3.1 gm/dl Assessment & Plan Patient is a 72-year-old male who presents to the ED with a worsening rash 8 days. Persistent, recurrent urticarial rash Unclear etiology: Likely secondary to ibuprofen -- patient on hospital day 2 remembered that that 1 week before rash developed, he was also taking Ibuprofen 250mg daily x 2 weeks --Placed on Solu-Medrol 60 mg IV every 6 hours then tapered to 40 mg IV every 6 hours , then transitioned to prednisone taper upon discharge Also given Zyrtec twice a day, ranitidine twice a day, and Benadryl IV as needed Case discussed with Dr. Anderson clinical specialist vascular who recommended above regimen --Urticaria significantly improved on hospital day #3 Patient requesting for discharge as well --Discharge plan: Prednisone 40 mg p.o. twice a day, then 30 mg p.o. twice a day etc. Zyrtec 10 mg twice a day Ranitidine 150 mg twice a day Benadryl 25 mg p.o. every 6 hours as needed for itching Follow-up with Dr. Anderson this week Rule out polycythemia vera -- Hg improved from 20 to 16 (baseline) Peripheral smear: no morphologic abnormalities noted -- Jak2 ordered -- Hematology consulted, Dr. Maguire follow up as outpatient Elevated indirect bilirubin -- resolved -- liver ultrasound IMPRESSION: 1. Heterogeneity of liver parenchyma likely indicates fibrosis or steatosis. 2. No cholelithiasis or biliary ductal dilatation. -- monitor Dispo d/c home ff up with PCP in 1 week ff up with [facility]ergy [facility] Dr. Hobbs on Fri09/30/17 Current Inpatient Medications: Current Inpatient Medications Medications (Trade) Dose Ordered Sig/Celeste Route Start Time Stop Time Status Last Admin Dose Admin Acetaminophen (Tylenol Tab) 650 mg Q4H PRN PO 09/28/17 15:30 10/28/17 15:29 Heparin Sodium (Porcine) (Heparin Sq 5000 Unit/0.5ml) 5,000 unit Q8 SQ 09/28/17 22:00 10/28/17 21:59 Ranitidine HCl (zANTac TAB) 150 mg BID PO 09/28/17 21:00 10/28/17 20:59 09/30/17 08:56 150 MG Epinephrine (Epipen) 0.3 mg UD PRN IM 09/28/17 15:45 10/28/17 15:44 Diphenhydramine HCl (Benadryl Inj) 25 mg Q6H PRN IV 09/28/17 17:30 10/28/17 17:29 09/29/17 04:00 25 MG Miscellaneous (Iv Fluids Completed) 1 ea PRN PRN N/A 09/28/17 19:30 09/28/18 19:29 Cetirizine HCl (zyrTEC TAB) 10 mg BID PO 09/29/17 21:00 10/29/17 08:59 09/30/17 08:56 10 MG Methylprednisolone Sodium Succinate 40 mg/Syringe 0.64 ml @ 1.5 mls/min Q6H IV 09/29/17 22:00 10/29/17 21:59 09/30/17 08:56 1.5 MLS/MIN
[2017-09-30] MEDS ORDERED: DIPH25CA5 PO ×2 (14:09→21:51)
[2017-09-30] MEDS ORDERED: ZNT150 PO (14:09)
[2017-09-30] MEDS ORDERED: ZYR10 PO (14:09)
[2017-09-30] MEDS ORDERED: PRED10TA PO ×2 (14:15→21:51)
--- NOTE | 2017-09-30 14:22 | Discharge Instructions ---
Discharge Instructions Date of Service September 30, 2017. Admission Reason for Admission: Urticarial Rash Discharge Discharge Diagnosis / Problem: Severe drug allergy likely secondary to ibuprofen Discharge Goals Goal(s): Diagnostic testing, Therapeutic intervention Activity Recommendations Activity Limitations: as noted below (No heavy exertion until follow-up with primary care doctor) Lifting Limitations: until after follow-up appointment Exercise/Sports Limitations: until after follow-up appointment Driving or Machine Use: No driving while taking Zyrtec or Benadryl. . Instructions / Follow-Up Instructions / Follow-Up Please review your new medication list and follow instructions carefully. Always take prednisone with food. Return to ER immediately if with recurrence of the rash. Follow-up with [facility] allergy clinic Dr. Hobbs in [facility] location on Tuesday, October 03, 2017 at 8:30 AM. Follow-up with primary care physician in 1 week. Current Hospital Diet Patient's current hospital diet: Regular Diet Discharge Diet Recommended Diet: Regular Diet Procedures Procedures Performed: Chest x-ray and liver ultrasound Pending Studies Studies pending at discharge: no Medical Emergencies . Who to Call and When: Medical Emergencies: If at any time you feel your situation is an emergency, please call 911 immediately. . Non-Emergent Contact Non-Emergency issues call your: Primary Care Provider, Specialist (Allergy clinic) Call Non-Emergent contact if: you have a fever, you have any medication questions . . "Provider Documentation" section prepared by Shaun Preston. .
[2017-09-30 14:25] VITALS: BP 136/75; PULSE 58; TEMP 36.5; O2SAT 95
--- NOTE | 2017-09-30 14:28 | Discharge Summary ---
Discharge Summary Date of Service September 30, 2017. Discharge Summary Admission Date: September 28, 2017 at 15:21 Discharge Date: September 30, 2017 Discharge Disposition: Home Principal Diagnosis: Severe drug allergy likely secondary to ibuprofen Secondary Diagnoses/Problems: Please refer to hospital course below Procedures: (LIVER) ABDOMEN LIMITED CLINICAL HISTORY: 72 years-old Male presenting with indirect bilirubinemia. TECHNIQUE: Real-time grayscale and limited color Doppler ultrasound imaging of the abdomen limited to the right upper quadrant was performed. COMPARISON: None. FINDINGS: Pancreas: Visualized portions of the pancreatic head and body normal. Liver: Hyperechogenic parenchyma with heterogeneous echotexture, likely indicating fibrosis or steatosis. The liver measures 13.0 cm in maximal sagittal dimension. No sonographic evidence of hepatic mass. Main portal vein patent with normal directional flow. Biliary: No intrahepatic biliary ductal dilatation. Common bile duct measures up to 4 mm in diameter. Gallbladder: The gallbladder is slightly contracted with borderline wall thickening likely secondary to contraction. A 2 mm focus along the gallbladder wall, which is nonmobile and hyperechoic likely represents a small cholesterol polyp. No evidence of gallstones, gallbladder distention, or pericholecystic fluid or inflammatory change. Sonographic Talbot's sign negative. Right kidney: Normal in appearance without evidence of hydronephrosis. Ascites: None. Other: None. IMPRESSION: 1. Heterogeneity of liver parenchyma likely indicates fibrosis or steatosis. 2. No cholelithiasis or biliary ductal dilatation. CHEST ONE VIEW PORTABLE CLINICAL HISTORY: Atypical chest pain COMPARISON STUDY: No previous studies for comparison. FINDINGS: The cardiac and mediastinal contours are normal. There is no evidence of focal pulmonary consolidation. There is no evidence of failure. No pleural effusions are visualized.[ IMPRESSION: No active disease in the chest. Consultations: Dermatology, hematology Pending Studies/Follow-Up: Please refer to hospital course below. Medication Reconciliation New Medications: Diphenhydramine Hcl (Benadryl) 25 Mg Cap 25 MG PO Q4H PRN for itching for 14 Days, #20 CAP 2 Refills Prednisone Tab (Prednisone) 10 Mg Tab 10 MG PO UD for 12 Days, #43 TAB take 4 tabs po BID x 2 days, then take 3 tabs po BID x 2 days, then take 2 tabs po BID x 2 days, then take 1 tab po BID x 2 days, then take 1/2 tab po BID x 2 days, then STOP; always take with food Cetirizine HCl (All Day Allergy) 10 Mg Tab 10 MG PO BID for 14 Days, #28 TAB 2 Refills Ranitidine HCl (Ranitidine HCl) 150 Mg Tab 150 MG PO BID for 14 Days, #28 TAB 2 Refills Continued Medications: Epinephrine (Epipen) 0.3 Mg/0.3 Ml Inj 0.3 MG IM UD PRN for Allergic Reaction, #1 BOX Discontinued Medications: Aspirin (Aspirin Ec) 81 Mg Tab 81 MG PO DAILY Diphenhydramine Hcl (Benadryl) 25 Mg Cap 50 MG PO Q6 Famotidine (Pepcid) 20 Mg Tab 20 MG PO DAILY, TAB Prednisone (Prednisone) 10 Mg Tab 0 PO UD, #1 PKT STERAPRED 10MG 12 DAY Prednisone (Prednisone) 50 Mg Tab 50 MG PO DAILY, #5 TAB Admission Information HPI (per Admitting provider): Patient is a 72-year-old male who presents to the ED with a worsening rash 8 days. Patient was flying from [place] to the [facility] when he started to experience itching in his groin area that continued overnight. The next morning , patient noted facial swelling as well. Was seen in a clinic and was given IV steroids and Benadryl with resolution of symptoms. The next day, patient's facial swelling recurred and he also noted swelling in hands and arms. Also started to experience hives on his face and arms. Was given oral Benadryl and prednisone, which would help itchiness and swelling for but then would notice red splotches would reappear. Patient and flew home early and were seen in [facility] on Friday when Pepcid was added to regimen and prednisone taper was initiated at 40mg daily. Over the weekend, hives spread all over body and itching intensified. Also notes lip swelling. Was directed to come to ED for further evaluation. Was given 125mg IV solu-medrol, 25mg IV benadryl and 50mg IV Zantac in ED and hives and swelling completed resolved before returning. Denies pain or drainage from rash. No respiratory distress, chest tightness or difficulty swallowing. Denies fever, chills, lightheadedness, visual changes, chest pain, SOB, abd pain , nausea, vomiting or bowel/bladder changes. Home medication consists of a baby aspirin in the morning. Denies any new detergent, lotions, foods or medications. Physical Exam (per Admitting): General Appearance: WD/WN, no apparent distress Head: normocephalic, atraumatic Eyes: normal inspection, PERRL, sclerae normal ENT: normal ENT inspection, hearing grossly normal, pharynx normal, + pertinent finding (mild lip swelling) Neck: supple, thyroid normal, trachea midline Respiratory/Chest: chest non-tender, lungs clear, normal breath sounds, no respiratory distress, no accessory muscle use Cardiovascular: regular rate, rhythm, no murmur, normal peripheral pulses Abdomen/GI: non tender, soft, no organomegaly Back: normal inspection Extremities/Musculoskelatal: normal inspection, no calf tenderness, no pedal edema Neurologic/Psych: no motor/sensory deficits, alert, normal mood/affect, oriented x 3 Skin: + pertinent finding (Diffuse pruritic red macules and pink patches throughout face, torso and extremities. ) Hospital Course Patient is a 72-year-old male who presents to the ED with a worsening rash 8 days. Persistent, recurrent urticarial rash likely secondary to severe allergy from ibuprofen --Patient only takes aspirin 81 mg daily times more than 20 years -- patient on hospital day 2 remembered that that 1 week before rash developed, he was also taking Ibuprofen 250mg daily x 2 weeks --Placed on Solu-Medrol 60 mg IV every 6 hours then tapered to 40 mg IV every 6 hours , then transitioned to prednisone taper upon discharge Also given Zyrtec twice a day, ranitidine twice a day, and Benadryl IV as needed Case discussed with Dr. Anderson medical staff specialist who recommended above regimen --Urticaria significantly improved on hospital day #3 Patient requesting for discharge as well --Discharge plan: Prednisone 40 mg p.o. twice a day, then 30 mg p.o. twice a day etc. Zyrtec 10 mg twice a day Ranitidine 150 mg twice a day Benadryl 25 mg p.o. every 6 hours as needed for itching Follow-up with Dr. Anderson this week Rule out polycythemia vera -- Hg 20 on admission, improved to 16 the following day Peripheral smear: no morphologic abnormalities noted No overt morphologic abnormalities are seen. 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 Polycythemia vera typically does not show any specific erythroid morphologic abnormalities and I cannot differentiate it from a secondary polycythemia. I do not see features of a different myeloproliferative disorder in the other lineages (granulocyte, monocyte, platelets). The lymphopenia may be secondary to recent prednisone usage. Correlation with clinical history and other findings is recommended. -- Jak2 ordered -- Hematology consulted, Dr. Maguire follow up as outpatient Elevated indirect bilirubin, resolved -- resolved -- liver ultrasound IMPRESSION: 1. Heterogeneity of liver parenchyma likely indicates fibrosis or steatosis. 2. No cholelithiasis or biliary ductal dilatation. -- monitor Dispo d/c home ff up with PCP in 1 week ff up with Allergy Clinic Dr. Hobbs on Fri10/03/17 Total time spent on discharge = 45 minutes This includes examination of the patient, discharge planning, medication reconciliation, and communication with other providers. Discharge Instructions Discharge Instructions Date of Service September 30, 2017. Admission Reason for Admission: Urticarial Rash Discharge Discharge Diagnosis / Problem: Severe drug allergy likely secondary to ibuprofen Discharge Goals Goal(s): Diagnostic testing, Therapeutic intervention Activity Recommendations Activity Limitations: as noted below (No heavy exertion until follow-up with primary care doctor) Lifting Limitations: until after follow-up appointment Exercise/Sports Limitations: until after follow-up appointment Driving or Machine Use: No driving while taking Zyrtec or Benadryl. . Instructions / Follow-Up Instructions / Follow-Up Please review your new medication list and follow instructions carefully. Always take prednisone with food. Return to ER immediately if with recurrence of the rash. Follow-up with [facility] allergy clinic Dr. Hobbs in [facility] location on Tuesday, October 03, 2017 at 8:30 AM. Follow-up with primary care physician in 1 week. Current Hospital Diet Patient's current hospital diet: Regular Diet Discharge Diet Recommended Diet: Regular Diet Procedures Procedures Performed: Chest x-ray and liver ultrasound Pending Studies Studies pending at discharge: no Medical Emergencies . Who to Call and When: Medical Emergencies: If at any time you feel your situation is an emergency, please call 911 immediately. . Non-Emergent Contact Non-Emergency issues call your: Primary Care Provider, Specialist (Allergy clinic) Call Non-Emergent contact if: you have a fever, you have any medication questions . . "Provider Documentation" section prepared by Shaun Preston. .
[2017-09-30] MEDS ORDERED: CETI10TA84 PO (21:51)
[2017-09-30] MEDS ORDERED: EPP3/2 IM (21:51)
[2017-09-30] MEDS ORDERED: RANI150T85 PO (21:51)
== END 2017-09-30 15:00 | disposition home or self-care (01) ==
LOC: C.EDB 10:53 → C.MS2W 15:21 → ENRESERV 15:34
PROVIDERS: ADMIT Internal Medicine; ATTEND Internal Medicine
DX: L50.0 Allergic urticaria (principal); R07.89 Other chest pain; R79.89 Other specified abnormal findings of blood chemistry; I34.0 Nonrheumatic mitral (valve) insufficiency; Z88.5 Allergy status to narcotic agent; Z87.891 Personal history of nicotine dependence; Z79.82 Long term (current) use of aspirin; Z79.52 Long term (current) use of systemic steroids

== ENCOUNTER 2017-09-30 21:22 | Emergency (ER) | payer OTHER ==
[~2017-09-30] VITALS: Ht 167.6 cm; Wt 88.0 kg
[~2017-09-30 21:22] MED LIST: ASPI81TA28 PO; DIPH25CA5 PO; EPP3/2 IM; FAMO20TA11 PO; PRED10TA PO; PRED50TA PO; ZNT150 PO; ZYR10 PO
[2017-09-30 21:25] VITALS: TEMP 36.6; Ht 167.6 cm; Wt 88.0 kg
[2017-09-30] MEDS ORDERED: DIPH25CA5 PO (21:51)
[2017-09-30] MEDS ORDERED: EPP3/2 IM (21:51)
[2017-09-30] MEDS ORDERED: PRED10TA PO (21:51)
[2017-09-30] MEDS ORDERED: CETI10TA84 PO (21:51)
[2017-09-30] MEDS ORDERED: RANI150T85 PO (21:51)
[2017-09-30] MEDS ORDERED: RANITIDINE HCL 50 MG/100 ML D5W IV STA (21:59)
[2017-09-30] MEDS ORDERED: RANITIDINE IV 50 MG in DEXTROSE 5% 100ML 100 ML IV SCH (21:59)
[2017-09-30] MEDS ORDERED: DiphenhydrAMINE HCL 50 MG/ML VIAL IV STA (21:59)
[2017-09-30] MEDS ORDERED: SODIUM CHLORIDE 0.9% 1000ML 1,000 ML IV ONE (22:00)
[2017-09-30] MEDS ORDERED: METHYLPREDNISOLONE IV 40 MG in SYRINGE 0 ML IV ONE (22:00)
[2017-09-30 22:22] LABS: HEMATOCRIT 45.1 % (42-52); HEMOGLOBIN 16.1 g/dL (14.0-18.0); IG# 0.03 K/uL (0.00-0.02); LYMPH % 4.3 %; MEAN CELL VOLUME 91.1 fL (80-100); MEAN CORPUSCULAR HEMOGLOBIN 32.5 pg (25-34); MEAN CORPUSCULAR HGB CONC 35.7 g/dl (32-36); MEAN PLATELET VOLUME 11.3 fL (7.4-10.4); MONO % 2.3 %; MONO ABS # 0.26 K/uL (0.11-0.59); NEUT % 93.1 %; NEUT ABS # 10.72 K/uL (1.4-6.5); PLATELET COUNT 163 K/uL (130-400); RED CELL DISTRIBUTION WIDTH CV 12.8 % (11.5-14.5); RED CELL DISTRIBUTION WIDTH SD 42.4 fL (36.4-46.3); WHITE BLOOD COUNT 11.51 K/uL (4.8-10.8)
[2017-09-30 22:44] LABS: ALBUMIN 3.5 gm/dl (3.4-5.0); CALCIUM 8.8 mg/dl (8.5-10.1); CREATININE 0.9 mg/dl (0.60-1.40); TOTAL PROTEIN 6.6 gm/dl (6.4-8.2)
[2017-09-30 23:51] VITALS: BP 115/61; PULSE 43; O2SAT 96
--- NOTE | 2017-10-01 04:57 | EMERGENCY ROOM VISIT NOTE ---
History First contact with patient: 21:41 Chief Complaint: ALLERGIC REACTION Stated Complaint: ALLERGIC REACTION Nursing Triage Summary: pt states allergic reaction to entire body. pt states recent d/c from hospital. pt states once iv steroids stopped, rash returned. pt denies cp, flowers, sob. pt states mild flowers. History of Present Illness The patient is a 72 year old male who presents to the Emergency Room with complaints of allergic reaction symptoms that returned about 4 hours ago. Patient has had a rash off and on for more than the past week. The patient states that his symptoms initially began when traveling from [place] to [facility]. He was seen twice in a clinic in [place], where he was started on steroids. The patient cut his vacation short and came home early because of the rash. He went to see his primary care physician who continued him on the steroids. The patient was actually seen 2 days ago here in this facility where he was admitted as he had an elevated hemoglobin of greater than 20. The patient had evaluation by hematology oncology as well as dermatology. The patient was treated in hospital with IV Solu-Medrol 40 mg every 6 hours, and his last dose of this was about 7 hours ago. The patient was discharged home, and given instructions to use Zyrtec and prednisone. Before the patient could start his oral prednisone he states the rash returned primarily on his back. The patient is not having swelling of his mouth or tongue. No chest pain, chest tightness, or shortness of breath. No abdominal pain. The patient did take his prednisone at home about 25 minutes ago, and then came to the ER out of concern for the rash. He rates his current pain 0/10. He is very frustrated with his course recently. He does not identify aggravating or alleviating factors. He has an upcoming appointment in 3 days with an rn labor and delivery/debt collection specialist. Review of Systems More than 10 systems were reviewed and otherwise negative with the exception of history of present illness. Past Medical/Surgical History Medical Problems: (1) Mitral valve regurgitation Family History FHx: Alzheimer's disease Polyarthritis Social History Smoking Status: Never Smoker Marital Status: Housing Status: lives with family Occupation Status: retired Current/Historical Medications Scheduled Cetirizine (Zyrtec), 10 MG PO BID Prednisone (Prednisone), 10 MG PO DIRECTED Ranitidine (Zantac), 150 MG PO BID Scheduled PRN Diphenhydramine Hcl (Benadryl), 25 MG PO Q4H PRN for Itching Epinephrine (Epipen), 0.3 MG IM UD PRN for Allergic Reaction Physical Exam Vital Signs Date Time Temp Pulse Resp B/P (MAP) Pulse Ox O2 Delivery O2 Flow Rate FiO2 09/30/17 23:51 43 18 115/61 96 Room Air 09/30/17 22:28 60 18 155/74 96 Room Air 09/30/17 21:25 36.6 72 18 148/76 94 Room Air Physical Exam VITALS: Vitals are noted on the nurse's note and reviewed by myself. Vital signs stable. GENERAL: Well-developed, well-nourished, white male, who is in no acute distress and resting comfortably. Patient is cooperative with the examination. MOUTH: Mucous membranes moist. Tonsils are not enlarged. Pharynx without erythema, blood, or exudate. Uvula midline. Airway patent. NECK: Supple without nuchal rigidity. No lymphadenopathy. No thyromegaly. Cervical spine is nontender. HEART: Regular rate and rhythm without murmurs gallops or rubs. LUNGS: Clear to auscultation bilaterally without wheezes, rales or rhonchi. No retractions or accessory muscle use. SKIN: The skin was with scattered urticarial rash primarily appreciated over the left scapula and left side back. No obvious infection or cellulitis. No target lesions. No scaling. Medical Decision & Procedures Laboratory Results 09/30/17 22:10 Red Blood Count 4.95, Mean Corpuscular Volume 91.1, Mean Corpuscular Hemoglobin 32.5, Mean Corpuscular Hemoglobin Concent 35.7, Mean Platelet Volume 11.3, Neutrophils (%) (Auto) 93.1, Lymphocytes (%) (Auto) 4.3, Monocytes (%) (Auto) 2.3, Eosinophils (%) (Auto) 0.0, Basophils (%) (Auto) 0.0, Neutrophils # (Auto) 10.72, Lymphocytes # (Auto) 0.50, Monocytes # (Auto) 0.26, Eosinophils # (Auto) 0.00, Basophils # (Auto) 0.00 09/30/17 22:10 Test 09/30/17 22:10 White Blood Count 11.51 K/uL (4.8-10.8) Red Blood Count 4.95 M/uL (4.7-6.1) Hemoglobin 16.1 g/dL (14.0-18.0) Hematocrit 45.1 % (42-52) Mean Corpuscular Volume 91.1 fL (80-100) Mean Corpuscular Hemoglobin 32.5 pg (25-34) Mean Corpuscular Hemoglobin Concent 35.7 g/dl (32-36) Platelet Count 163 K/uL (130-400) Mean Platelet Volume 11.3 fL (7.4-10.4) Neutrophils (%) (Auto) 93.1 % Lymphocytes (%) (Auto) 4.3 % Monocytes (%) (Auto) 2.3 % Eosinophils (%) (Auto) 0.0 % Basophils (%) (Auto) 0.0 % Neutrophils # (Auto) 10.72 K/uL (1.4-6.5) Lymphocytes # (Auto) 0.50 K/uL (1.2-3.4) Monocytes # (Auto) 0.26 K/uL (0.11-0.59) Eosinophils # (Auto) 0.00 K/uL (0-0.5) Basophils # (Auto) 0.00 K/uL (0-0.2) RDW Standard Deviation 42.4 fL (36.4-46.3) RDW Coefficient of Variation 12.8 % (11.5-14.5) Immature Granulocyte % (Auto) 0.3 % Immature Granulocyte # (Auto) 0.03 K/uL (0.00-0.02) Anion Gap 6.0 mmol/L (3-11) Est Creatinine Clear Calc Drug Dose 79.4 ml/min Estimated GFR () 99.9 Estimated GFR (Non- 86.2 BUN/Creatinine Ratio 20.9 (10-20) Calcium Level 8.8 mg/dl (8.5-10.1) Total Bilirubin 0.8 mg/dl (0.2-1) Aspartate Amino Transf (AST/SGOT) 22 U/L (15-37) Alanine Aminotransferase (ALT/SGPT) 28 U/L (12-78) Alkaline Phosphatase 130 U/L (45-117) Total Protein 6.6 gm/dl (6.4-8.2) Albumin 3.5 gm/dl (3.4-5.0) Globulin 3.1 gm/dl (2.5-4.0) Albumin/Globulin Ratio 1.1 (0.9-2) Lyme Disease IgG Antibody NEG (NEG) Lyme Disease IgM Antibody NEG (NEG) Anti-Streptolysin O Antibody Screen NEG IU/ml (<200 IU) Medications Administered Medications (Trade) Dose Ordered Sig/Celeste Route Start Time Stop Time Status Last Admin Dose Admin Sodium Chloride 1,000 ml @ 999 mls/hr Q1H1M ONCE IV 09/30/17 22:00 09/30/17 23:00 DC 09/30/17 22:24 999 MLS/HR Diphenhydramine HCl (Benadryl Inj) 50 mg NOW STAT IV 09/30/17 21:59 09/30/17 22:01 DC 09/30/17 22:24 50 MG Methylprednisolone Sodium Succinate 40 mg/Syringe 0.64 ml @ 1.5 mls/min NOW ONCE IV 09/30/17 22:00 09/30/17 22:01 DC 09/30/17 22:25 1.5 MLS/MIN Ranitidine HCl 50 mg/Dextrose 102 ml @ 204 mls/hr TODAY@2159 IV 09/30/17 21:59 09/30/17 23:59 DC 09/30/17 22:24 204 MLS/HR ED Course Physical exam and history were performed. Nursing notes, EMR, and Medication List were personally reviewed. Patient appears to have return of his rash and allergic reaction symptoms. He does not appear to be in anaphylaxis. The patient's hospital course was reviewed at length and the patient was doing very well with IV Solu-Medrol. I discussed the case with my attending physician, Dr. Murray, and we elected to provide the patient 40 mg IV Solu-Medrol, 50 mg IV Benadryl and 50 mg IV Zantac. We did check basic labs. The patient's blood work is as above and was reviewed. He does have a minimally elevated white blood cell count which is felt to be from his steroid use recently. His hemoglobin has normalized. Additionally he did have an elevated bilirubin initially, but this has returned to normal. He does not have gross anemia or significant electrolyte imbalance. The patient was monitored for a few hours here in the emergency department and did have essentially complete resolution of his symptoms with the above interventions. The patient is quite frustrated with his recent symptoms. I had a lengthy talk with the patient and encouraged him to continue using his medications as prescribed. He should keep his upcoming appointment with the wellness specialist. He has an EpiPen at home and does not need another prescription for this. He does have specialty labs that have been ordered by Heme-onc and dermatology that has not yet returned. He was certainly invited back to the ER with any new, worsening, or concerning symptoms. The chart was completed utilizing [employer] Speech Voice Recognition Software. Grammatical errors, random word insertions, pronoun errors, and incomplete sentences are an occasional consequence of this system due to software limitations, ambient noise, and hardware issues. Any formal questions or concerns about the content, text, or information contained within the body of this dictation should be directly addressed to the provider for clarification. . Medical Decision Differential diagnosis: Etiologies such as allergic reaction, anaphylaxis, urticaria, Price-Lang syndrome, toxic epidermal necrolysis, erythema multiforme, cellulitis, as well as others were entertained. Medication Reconcilliation Current Medication List: was personally reviewed by me Blood Pressure Screening Patient's blood pressure: Normal blood pressure Impression Primary Impression: Allergic reaction Departure Information Dispostion Home / Self-Care Condition GOOD Referrals Savage Brown M.D. (PCP) Forms HOME CARE DOCUMENTATION FORM, IMPORTANT VISIT INFORMATION Patient Instructions My [facility] Additional Instructions You were seen and evaluated today on an emergency basis only. This is not a substitute for, or an effort to provide, complete comprehensive medical care. It is not possible to recognize and treat all injuries or illnesses in a single emergency department visit. For this reason it is recommended that you followup with Allergy/Immunology as scheduled for ongoing care. Continue your medications as previously directed. You may use Benadryl 25-50 mg every 6 hours for additional relief of symptoms. You are welcome to return to the emergency department anytime with new, worsening, or concerning symptoms.
== END 2017-09-30 23:57 | disposition home or self-care (01) ==
LOC: C.EDB 21:22 → C.EDC 23:57
DX: T78.40XA Allergy, unspecified, initial encounter (principal); X58.XXXA Exposure to other specified factors, initial encounter; I34.0 Nonrheumatic mitral (valve) insufficiency; Z79.899 Other long term (current) drug therapy; Z82.0 Family history of epilepsy and other diseases of the nervous system